=== PATIENT | female | born 1935 | race Caucasian/White ===

== ENCOUNTER → 2016-11-25 | Emergency (ER) | payer MEDICARE ==
[~2016-11-25] VITALS: Ht 157.5 cm; Wt 53.0 kg
[~2016-11-25] MED LIST: AMOX-356 PO; AMOX-358 PO; AMOX1TAB39 PO; BISO5TAB; CHOL10002 PO; CLOP75TA28; DIGO125T6; DOCU100C23; ESTR0.62; FURO80TA84; NITR1PAT26; POLY255P; PRV20T; SODIUM CHLORIDE FLUSH 10 ML SYR IV PRN; SODIUM CHLORIDE FLUSH 3 ML SYR IV PRN; THYR60TA4
--- OUTSIDE RECORDS SUMMARY | 2016-11-25 15:29 | XMS REPORT | Continuity of Care Document ---
Author Author [facility] Organization [facility] Address Unknown Phone Unavailable Care Team Providers Care Medical Surgery Nurse Name Role Phone Self, Referral PCP Unavailable Source Comments Some departments are not documenting in the electronic medical record. If you do not see the information that you expected, contact Release of Information in the Health Information Management department at [phone] for further assistance in locating additional records.[facility] Active Allergies and Adverse Reactions Allergen Noted Date Severity Reactions Comments Cefazolin 02/08/2003 Allergy recorded in SMS: ANCEF, Allergy recorded in SMS: KEFZOL Diazepam 02/08/2003 Allergy recorded in SMS: Valium Latex 02/08/2003 Allergy recorded in SMS: Latex Motrin 05/15/2011 UNKNOWN Sms Unclassified Drug 02/08/2003 Allergy recorded in SMS: CLAVIL Current Medications Prescription Sig. Disp. Refills Start End Date Status Date atenolol (TENORMIN) 25 mg Take 25 mg by mouth. Take Active PO tablet one half tablet in the morning and one half tablet in the evening if needed LEVOTHYROXINE SODIUM Take by mouth daily. Active (SYNTHROID PO) digoxin (LANOXIN) 125 mcg Take 0.125 mg by mouth Active PO tablet daily. furosemide (LASIX) 40 mg Take 40 mg by mouth twice Active PO tablet daily. ATORVASTATIN CALCIUM Take 30 mg by mouth Active (LIPITOR PO) daily. ESTROGENS,CONJUGATED Take by mouth daily. Active (PREMARIN PO) trandolapril (MAVIK) 2 mg Take 2 mg by mouth twice Active PO tablet daily. immune globulin 10% Administer through vein Active (GAMUNEX) 10 g/100 mL in every 30 days. bottle IV infusion ERGOCALCIFEROL (VITAMIN Take 1,000 Int'l Units by Active D2) (VITAMIN D PO) mouth daily. clopidogrel (PLAVIX) 75 Take 75 mg by mouth Active mg PO daily. levofloxacin (LEVAQUIN) Take 500 mg by mouth Active 500 mg PO tablet twice daily. OMEGA-3 FATTY ACIDS Take 1,000 mg by mouth Active (OMEGA 3 PO) daily. 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 Social History Tobacco Use Types Packs/Day Years Used Date Never Assessed Last Filed Vital Signs Vital Sign Reading Time Taken Blood Pressure 112/52 05/15/2009 12:00 AM CDT Pulse 86 11/16/2007 12:00 AM CDT Temperature 36.3 C (97.4 F) 05/15/2009 12:00 AM CDT Respiratory Rate 14 11/16/2007 12:00 AM CDT Height 1.549 m (5' 1") 05/15/2009 12:00 AM CDT Weight 69.854 kg (154 lb) 05/15/2009 12:00 AM CDT Body Mass Index 29.11 05/15/2009 12:00 AM CDT Oxygen Saturation - - Plan of Care Health Maintenance Due Date Last Done Comments Physical (Comprehensive) 1942 Exam Pertussis Vaccine 1946 Tetanus Vaccine 1952 Shingles Vaccine 1995 Osteoporosis Screening 2000 Prevnar/Pneumovax (#1) 2000 Influenza Vaccine 04/02/2017 Results from Last 3 Months Not on file
--- OUTSIDE RECORDS SUMMARY | 2016-11-25 15:31 | XMS REPORT | Continuity of Care Document ---
Author Author [facility] Organization [facility] Address Unknown Phone Unavailable Care Team Providers Care Fuel Handler Name Role Phone Self, Referral PCP Unavailable Source Comments Some departments are not documenting in the electronic medical record. If you do not see the information that you expected, contact Release of Information in the Health Information Management department at [phone] for further assistance in locating additional records.[facility] Active Allergies and Adverse Reactions Allergen Noted [...]
[2016-11-25 17:53] LABS: BASOPHILS % (AUTO) 1 % (0-2); EOSINOPHILS # (AUTO) 0.1 10^3uL; EOSINOPHILS % (AUTO) 2 % (0-4); LYMPHOCYTES # (AUTO) 1.4 X10^3; MEAN CORPUSCULAR HEMOGLOBIN 28.9 PG (26.0-34.0); MEAN CORPUSCULAR HGB CONC 33.4 g/dL (31.0-37.0); MEAN CORPUSCULAR VOLUME 87 FL (80-100); MEAN PLATELET VOLUME 9.6 FL (6.0-9.5); MONOCYTES # (AUTO) 0.6 X10^3; MONOCYTES % (AUTO) 10 % (3-11); NEUTROPHILS # (AUTO) 3.9 X10^3; NEUTROPHILS % (AUTO) 65 % (51-67); PLATELET COUNT 216 10^3uL (150-450); WHITE BLOOD COUNT 6.06 10^3uL (4.0-11.0)
[2016-11-25 18:05] LABS: ALBUMIN 4.4 g/dL (3.4-5.0); ANION GAP 14.8 MEQ/L (3-15); CALCULATED IONIZED CALCIUM 3.7 mg/dL (3.8-4.6); TOTAL PROTEIN 8.6 g/dL (6.4-8.5)
[2016-11-25 18:42] LABS: BILIRUBIN,URINE Negative (Negative); CLARITY,URINE Clear; COLOR,URINE Yellow; GLUCOSE, URINE (UA) Negative (Negative); LEUKOCYTE ESTERASE ,URINE Negative (Negative); UROBILINOGEN,URINE 0.2 mg/dL (0.2-1.0)
[2016-11-25 20:18] VITALS: BP 164/62
--- NOTE | 2016-11-26 07:26 | Diagnostic Imaging Report ---
CLINICAL INDICATION: Patient left lower quadrant abdominal pain. EXAMS: X-ray of the chest PA view and x-ray of the abdomen supine and upright views. COMPARISONS: X-ray of the abdomen dated 03/27/2016. FINDINGS: LUNGS/ PLEURA: Lungs are clear. There is no pneumothorax. There is no pleural effusion. MEDIASTINUM: Tortuous descending thoracic aorta is again seen. PULMONARY VASCULATURE: Unremarkable. HEART: Heart size within normal limits. Again seen postop changes to the chest with sternotomy wires. BONES/ EXTRATHORACIC SOFT TISSUE: Unremarkable. ABDOMEN AND PELVIS: Nonspecific bowel gas pattern is seen. There is a small to moderate amount of stool seen throughout the colon with most in the pelvis region. There is nonspecific few air-fluid levels overlying the right abdominal region. There is no evidence of abdominal free air. There are surgical clips overlying the right abdominal region and pelvis. There are no focal calcifications overlying the expected regions/ pathways of both kidneys, ureters, and bladder regions. 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 There is L4-L5 laminectomy changes in the lower lumbar spine facet arthropathy. There is severe joint space loss, sclerosis, and spurring of the left hip. There is mild degenerative disease in the right hip. Postop changes to the symphysis pubis region, which may be related to bladder swelling. IMPRESSION: 1: There is no radiographic evidence of acute cardiopulmonary process. 2: Nonspecific bowel gas pattern with a few air-fluid levels. There is no dilated bowel seen. 3: There is a [id number] amount of stool throughout the colon. Dictated by: Dictated on workstation # [id number]
== END ==
LOC: ED 15:27
DX: R10.32 Left lower quadrant pain (principal); F03.90 Unspecified dementia, unspecified severity, without behavioral disturbance, psychotic disturbance, mood disturbance, and anxiety; F48.8 Other specified nonpsychotic mental disorders; Z79.899 Other long term (current) drug therapy
CPT/HCPCS: 36415; 74022; 80053; 80162; 81003; 83690; 85025; 99283